=== PATIENT | male | born 2000 | race Caucasian/White ===

== ENCOUNTER 2018-02-02 21:31 | Emergency (ER) | payer OTHER ==
[~2018-02-02] VITALS: Ht 180.3 cm; Wt 127.0 kg
[2018-02-02 21:46] VITALS: BP 123/53
[2018-02-02] MEDS ORDERED: DECADRON IV STA (22:15)
--- NOTE | 2018-02-02 22:20 | ER.PDOC ---
General Chief Complaint: Sore Throat Stated Complaint: SORE THROAT Time seen by MD: 22:06 Source: patient Exam Limitations: no limitations History of Present Illness Initial Comments For 4 days sore throat, feverish. No JESUS, N/V, cough or congestion. Timing/Duration: gradual Associated Symptoms: fever/chills, mod sore throat Severity: moderate Allergies: Coded Allergies: No Known Allergies (Unverified , 02/02/18) Past Medical History Medical History: no pertinent history Surgical History: no surgical history Social History Smoking: cigarettes, less than 1 pack/day Alcohol Use: occassionally Drug Use: none Constitutional: see HPI Eyes: no symptoms reported Ears: no symptoms reported Nose: no symptoms reported Mouth: see HPI Throat: see HPI Respiratory: no symptoms reported Cardiovascular: no symptoms reported Gastrointestinal: no symptoms reported All Other Systems: Reviewed and Negative Physical Exam General Appearance: alert, moderate distress Head/Neck: head nml inspection, trachea midline, cervical lymphadenopathy ( Neck supple.) Eyes: eyes nml inspection, PERRL, no nystagmus Mouth: lips, gums nml, no drooling Throat: no airway problems, pharyngeal erythema, tonsillar exudate ( symmetrical. No airway compromise.), hoarse/muffled voice Ears/Nose: nml inspection Respiratory: no resp. distress, lungs clear CVS: reg. rate & rhythm, heart sounds nml Abdomen: non-tender, no organomegaly Extremities: non-tender Skin Exam: Normal Color, Warm/Dry NEURO/PSYCH: oriented X3, mood/effect nml Results/Orders Results/Orders Laboratory Tests Test 02/02/18 00:00 02/02/18 22:20 Group A Streptococcus Screen NEGATIVE (NEGATIVE) White Blood Count 18.4 10^3/uL (4.5-12.5) Red Blood Count 5.63 10^6/uL (4.50-5.90) Hemoglobin 15.4 g/dL (13.2-15.6) Hematocrit 47.2 % (37.0-53.0) Mean Corpuscular Volume 83.8 fL (78-100) Mean Corpuscular Hemoglobin 27.4 pg (26-34) Mean Corpuscular Hemoglobin Concent 32.6 g/dL (33-37) Red Cell Distribution Width 13.8 % (11.5-14.5) Platelet Count 221 10^3/uL (150-400) Mean Platelet Volume 10.1 fL (7.8-11.0) Neutrophils (%) (Auto) 78.8 % (41.0-85.0) Lymphocytes (%) (Auto) 11.6 % (24.0-44.0) Monocytes (%) (Auto) 8.4 % (5.0-12.0) Neutrophils # (Auto) 14.6 10^3/uL (1.8-8.0) Lymphocytes # (Auto) 2.1 10^3/uL (1.2-5.2) Monocytes # (Auto) 1.6 10^3/uL (0.0-0.4) Absolute Immature Granulocyte (auto 0.07 10^3 u/L (0-2) Eosinophils % 0.7 % (0.0-5.0) Basophils % 0.1 % (0.0-0.2) Basophils # 0.0 10^3/uL (0.0-0.1) Eosinophil Count 0.1 10^3/uL (0.0-0.2) Percent Immature Gran (Cell Imm) 0.40 % (0.00-0.50) Monoscreen NEGATIVE (NEGATIVE) Administered Medications Medications (Trade) Dose Ordered Sig/Eb Route PRN Reason Start Time Stop Time Status Last Admin Dose Admin Dexamethasone Sodium Phosphate (Decadron) 10 mg STAT STAT IV 02/02/18 22:15 02/02/18 22:17 DC 02/02/18 22:35 Sodium Chloride 2,000 ml @ 1,200 mls/hr Q1H40M ONCE IV 02/02/18 22:30 02/03/18 00:09 02/02/18 22:35 Progress Progress Strep screen neg. Cooper neg. WBC 18.4 Blood cult pending. NS bolus given, Dex given. Will Tx with antibiotics due to neg mono and el WBC. Departure Time of Disposition: 23:18 Disposition: 01 HOME, SELF-CARE Impression: Primary Impression: Exudative tonsillitis Condition: Stable Patient Instructions: Tonsillitis Referrals: PCP,UNKNOWN (PCP) PRIMARY CARE PROVIDER MAICO RUSH MD Additional Instructions: Bedrest, fluids. Return if getting worse. See your doctor in 1 to 2 days for recheck. Duration or Time Spent with Pa: 30 ANTONIO REY DO Feb 02, 2018 22:20
[2018-02-02] MEDS ORDERED: DECADRON ONE (22:26)
[2018-02-02] MEDS ORDERED: NS 1000ML 1,000 ML ONE ×2 (22:26→23:34)
[2018-02-02] MEDS ORDERED: NS 1000ML 2,000 ML IV ONE (22:30)
[2018-02-02 22:31] LABS: BASOPHIL % 0.1 % (0.0-0.2); EOSINOPHIL # 0.1 10^3/uL (0.0-0.2); EOSINOPHIL % 0.7 % (0.0-5.0); HEMOGLOBIN 15.4 g/dL (13.2-15.6); LYMPHOCYTES # 2.1 10^3/uL (1.2-5.2); LYMPHOCYTES % 11.6 % (24.0-44.0); MEAN CELL HGB 27.4 pg (26-34); MEAN CELL HGB CONCENTRATION 32.6 g/dL (33-37); MEAN CORP VOLUME 83.8 fL (78-100); MEAN PLATELET VOLUME 10.1 fL (7.8-11.0); MONOCYTES # 1.6 10^3/uL (0.0-0.4); MONOCYTES % 8.4 % (5.0-12.0); NEUTROPHIL # 14.6 10^3/uL (1.8-8.0); NEUTROPHILS % 78.8 % (41.0-85.0); RED CELL DISTRIBUTION WIDTH 13.8 % (11.5-14.5); WHITE BLOOD CELL 18.4 10^3/uL (4.5-12.5)
[2018-02-02] MEDS ORDERED: ROCEPHIN IM STA (23:09)
[2018-02-02] MEDS ORDERED: ROCEPHIN ONE (23:34)
[2018-02-02] MEDS ORDERED: NS 100ML 100 ML IV ONE (23:38)
[2018-02-02] MEDS ORDERED: ROCEPHIN 1,000 MG in NS 100ML 100 ML IV STA (23:45)
--- NOTE | 2018-02-02 23:55 | NUR ---
IV DC'D AT THIS TIME. CATHETER TIP INTACT.
[2018-02-03 00:14] VITALS: BP 123/53
== END 2018-02-02 23:59 | disposition home or self-care (01) ==
LOC: ER 21:31
DX: J03.80 Acute tonsillitis due to other specified organisms (principal); F17.210 Nicotine dependence, cigarettes, uncomplicated
CPT/HCPCS: 36415; 85025; 86308; 87040; 87070; 87880; 96374; 96375; 99284; J0696 ×2; J1100; J7030 ×2; J7050 ×2